=== PATIENT | female | born 1990 | race Two or more races ===

== ENCOUNTER 2019-12-18 18:25 | Observation (INO) | payer MEDICAID ==
[~2019-12-18 18:25] MED LIST: FERR27TA2 PO; PREN-96 PO
== END 2019-12-18 21:02 | disposition home or self-care (01) ==
LOC: LDRP 18:25
PROVIDERS: ADMIT Obstetrics & Gynecology; ATTEND Obstetrics & Gynecology
DX: O36.5930 Maternal care for other known or suspected poor fetal growth, third trimester, not applicable or unspecified (principal); Z3A.36 36 weeks gestation of pregnancy
CPT/HCPCS: 59025; 76818; 81002; G0378

== ENCOUNTER 2019-12-25 15:13 | Observation (INO) | payer MEDICAID | END 2019-12-25 17:20 | disposition home or self-care (01) | LOC: LDRP 15:13 | PROVIDERS: ADMIT Specialist; ATTEND Specialist | DX: O36.5930 Maternal care for other known or suspected poor fetal growth, third trimester, not applicable or unspecified (principal); Z3A.37 37 weeks gestation of pregnancy | CPT/HCPCS: 59025; 76818; G0378; 81002 ==

== ENCOUNTER 2019-12-29 16:13 | Observation (INO) | payer MEDICAID | END 2019-12-29 17:25 | disposition home or self-care (01) | LOC: LDRP 16:13 | PROVIDERS: ADMIT Obstetrics & Gynecology; ATTEND Obstetrics & Gynecology | DX: O36.5930 Maternal care for other known or suspected poor fetal growth, third trimester, not applicable or unspecified (principal); Z3A.38 38 weeks gestation of pregnancy | CPT/HCPCS: 59025; 76818; 81002; G0378 ==

== ENCOUNTER 2020-01-06 12:00 | Observation (INO) | payer MEDICAID ==
[~2020-01-06 12:00] MED LIST changes: -FERR27TA2 PO
== END 2020-01-06 14:00 | disposition home or self-care (01) ==
LOC: LDRP 12:00
PROVIDERS: ADMIT Obstetrics & Gynecology; ATTEND Obstetrics & Gynecology
DX: O36.5930 Maternal care for other known or suspected poor fetal growth, third trimester, not applicable or unspecified (principal); Z20.828 Contact with and (suspected) exposure to other viral communicable diseases; Z3A.39 39 weeks gestation of pregnancy
CPT/HCPCS: 59025; 76818; 81002; G0378; U0003

== ENCOUNTER 2020-01-08 22:40 | Inpatient (IN) | payer MEDICAID ==
[~2020-01-08] VITALS: Ht 30.5 cm; Wt 0.5 kg
[2020-01-08] MEDS ORDERED: WITCH HAZEL-GLYCERIN PAD TOP PRN (23:00)
[2020-01-08] MEDS ORDERED: LIDOCAINE 2%HCL (LOCAL ANESTH.) INJ 20ML MDV IJ ONE (23:00)
[2020-01-08] MEDS ORDERED: LACTATED RINGER'S 1,000 ML IV SCH (23:00)
[2020-01-08] MEDS ORDERED: DERMOPLAST 60ML BOTTLE TOP PRN (23:00)
[2020-01-08] MEDS ORDERED: PHISODERM TOP SOLN 240ML BTL TOP PRN (23:00)
[2020-01-08 23:49] LABS: Basophils # (auto) 0 10 ^3/uL (0-0.2); Basophils % (auto) 0.3 % (0.0-2.0); Eosinophils # (auto) 0.1 10 ^3/uL (0-0.8); Eosinophils % (auto) 0.6 % (0.0-7.0); Hematocrit 34.5 % (36.0-46.0); Hemoglobin 11.5 g/dL (12.2-16.2); Lymphocytes # (auto) 1.4 10 ^3/uL (0.4-5.4); Lymphocytes % (auto) 17.5 % (10.0-50.0); Mean Corpuscular Hemoglobin 30.6 pg (28.0-32.0); Mean Corpuscular Hgb Conc. 33.5 g/dL (32.0-36.0); Mean Corpuscular Volume 91.4 fL (80.0-100.0); Monocytes # (auto) 0.8 10 ^3/uL (0-1.3); Monocytes % (auto) 9.4 % (0.0-12.0); Neutrophils # (auto) 5.9 10 ^3/uL (1.6-8.6); Neutrophils % (auto) 72.2 % (37.0-80.0); Platelet Count (auto) 184 10^3/uL (140-450); Red Blood Cells 3.78 10^6/uL (4.0-5.20); Red Cell Distribution Width 15.8 % (11.8-14.3); White Blood Cell 8.1 10^3/uL (4.4-10.8)
[2020-01-08 23:52] LABS: Urine Bacteria FEW /hpf (None Seen); Urine Blood 2+ /uL (Negative); Urine Mucus FEW (None Seen); Urine Specific Gravity 1.013 (1.001-1.035); Urine WBC 3 /hpf (0 - 5)
[2020-01-09] MEDS ORDERED: miSOPROStol 50 MCG per PRE-CUT 1/2 TAB PO PRN
[2020-01-09 00:07] LABS: Albumin 2.6 g/dL (3.4-5.0); Calcium 8.8 mg/dL (8.5-10.1); Potassium 3.5 mmol/L (3.5-5.1)
[2020-01-09 00:09] LABS: BUN/Creatinine Ratio 16.1
[2020-01-09 00:11] LABS: Bilirubin, Total 0.3 mg/dL (0.2-1.0); Total Protein 6.6 g/dL (6.4-8.2)
[2020-01-09 00:18] LABS: INR 1.04 (0.9-1.15); Partial Thromboplastin Time 26.4 sec (23.0-31.2)
[2020-01-09] MEDS ORDERED: NALOXONE HCL 0.4 MG/ML VIAL IV ONE (02:15)
[2020-01-09] MEDS ORDERED: ROPIVACAINE HCL 200 ML EPI SCH (02:15)
[2020-01-09] MEDS ORDERED: LIDOCAINE HCL 2 %PF INJ 10ML AMP IJ ONE (02:15)
[2020-01-09] MEDS ORDERED: fentaNYL CITRATE 100 MCG/2 ML VL IV ONE (02:15)
[2020-01-09] MEDS ORDERED: LACTATED RINGER'S 1,000 ML IV ONE (02:15)
[2020-01-09] MEDS ORDERED: ePHEDrine SULFATE 50 MG/ML AMP IV ONE (02:15)
[2020-01-09] MEDS ORDERED: ONDANSETRON HCL 4 MG/2 ML VIAL IV ONE (02:30)
[2020-01-09] MEDS ORDERED: ONDANSETRON HCL 4 MG/2 ML VIAL ONE (02:34)
[2020-01-09] MEDS ORDERED: BUTORPHANOL TARTRATE 2 MG/1 ML VIAL IV ONE (03:15)
[2020-01-09] MEDS ORDERED: PROMETHAZINE HCL 25 MG/ML 1ML IV ONE (03:15)
[2020-01-09] MEDS ORDERED: PROMETHAZINE HCL 25 MG/ML 1ML ONE (03:17)
[2020-01-09] MEDS ORDERED: BUTORPHANOL TARTRATE 2 MG/1 ML VIAL ONE (03:17)
[2020-01-09] MEDS ORDERED: LACT. RINGERS/OXYTOCIN 20UNITS 1,000 ML IV ONE ×2 (03:18→03:30)
[2020-01-09] MEDS ORDERED: METHYLERGONOVINE MALEATE 0.2 MG/ML AMP IM ONE (03:50)
[2020-01-09] MEDS ORDERED: miSOPROStol 100 mcg TAB ONE ×3 (03:52→05:59)
[2020-01-09] MEDS ORDERED: DIPHENOXYLATE W/ATROPINE 2.5 MG TAB PO ONE (05:15)
[2020-01-09] MEDS ORDERED: CARBOPROST TROMETHAMINE 250 MCG/1ML VIAL IM ONE (05:15)
[2020-01-09 07:00] VITALS: BP 135/72
--- NOTE | 2020-01-09 08:00 | NUR ---
Ambulation: Patient OOB with standby assistance by RN. Patient ambulated to bathroom with steady gait. Patient able to void 550 without difficulty. [facility]are teaching provided with returned demonstration by patient. Clean gown provided and bed linen changed. Patient ambulated back to bed with steady gait and no distress noted.
[2020-01-09 11:00] VITALS: BP 124/57
[2020-01-09] MEDS ORDERED: ACETAMINOPHEN 325 MG TAB PO PRN (17:00)
[2020-01-09] MEDS: IBUPROFEN 600 MG TAB PO PRN (18:13)
[2020-01-09 19:22] VITALS: BP 107/58
--- NOTE | 2020-01-09 22:00 | NUR ---
INFANT FEEDINGS PT CONFESSING TO BABY NOT LATCHING ON ADEQUATELY AND HAVING IS DIFFICULTY WAKING UP BABY. PT WAS EDUCATED ON WAYS TO WAKE UP BABY. PT VERBALIZED UNDERSTANDING AND PERFORMED RETURN DEMONSTRATION. PT WAS EDUCATED ON LATCHING ON BABY TO BREAST. PT STATES "SHE LATCHED ON EARLIER, SHE ONLY FEEDS ON THE BREAST FOR 2MIN AND FALLS ASLEEP RIGHT AWAY." SEVERAL ATTEMPTS MADE TO LATCH ON BABY TO THE BREAST AND BABY CONTINUES TO FALL ASLEEP. NIPPLE SHIELD PROVIDED AND PT WAS EDUCATED ON NIPPLE SHIELD APPLICATION. PT VERBALIZED UNDERSTANDING. PT STATED SHE WILL ATTEMPT TO FEED BABY.
--- NOTE | 2020-01-09 22:45 | NUR ---
REASSESSED FEEDING OUTCOME. PT STATES " I HAVE TRIED AND SHE JUST WON'T WAKE UP". PT PROVIDED RETURN DEMONSTRATION AND NO LATCH WAS ACHIEVED. PT GIVEN SIMILAC BOTTLE. PT WAS EDUCATED ON FORMULA FEEDING. PT VERBALIZED UNDERSTANDING.
--- NOTE | 2020-01-09 23:10 | NUR ---
PT FED BABY 9ML FROM SIMILAC
[2020-01-09 23:15] VITALS: BP 112/70
[2020-01-10 02:40] VITALS: BP 106/59
[2020-01-10 05:11] LABS: RPR Non Reactive (Non Reactive)
[2020-01-10 06:50] VITALS: BP 106/52
--- NOTE | 2020-01-10 08:30 | NUR ---
IV removal IV DC'd with clean sterile technique, catheter fully intact. Pressure dressing applied to site. Patient tolerated well. NOTE:
[2020-01-10] MEDS: IBUPROFEN 600 MG TAB PO PRN (10:14)
[2020-01-10] MEDS ORDERED: MEASLES, MUMPS & RUBELLA VAC(MMRII) 0.5ML SC ONE (10:45)
[2020-01-10 11:00] VITALS: BP 112/59
--- NOTE | 2020-01-10 11:35 | NUR ---
Discharge: Discharge instructions given as ordered. Pt encouraged to follow up with [facility] [employer]PERATIONS OFFICER as instructed. All questions and concerns addressed. Patient verbalized understanding. Medication reconciliation completed and copy given to patient. All required/requested vaccines given and copies of vaccinations given to patient. Patient encouraged to prepare to depart unit.
== END 2020-01-10 12:22 | disposition home or self-care (01) | DRG 560 ==
LOC: LDRP 22:40
PROVIDERS: ADMIT Obstetrics & Gynecology; ATTEND Obstetrics & Gynecology
PROC: 10E0XZZ Delivery of Products of Conception, External Approach (ICD-10-PCS; principal; 2020-01-09)
PROC: 3E0P7VZ Introduction of Hormone into Female Reproductive, Via Natural or Artificial Opening (ICD-10-PCS; 2020-01-09)
DX: O36.5990 Maternal care for other known or suspected poor fetal growth, unspecified trimester, not applicable or unspecified (principal); O62.3 Precipitate labor; Z37.0 Single live birth; Z3A.39 39 weeks gestation of pregnancy; O70.0 First degree perineal laceration during delivery
CPT/HCPCS: 36415; 59025; 59409; 80053; 81001; 85025; 85610; 85730; 86592; 86850; 86900; 86901; 96360; 96361; 96365; 96366; 96372; 96374; 96375; G0378; J2405; J2590

== ENCOUNTER 2022-01-24 11:46 | Emergency (ER) | payer MEDICAID ==
[~2022-01-24] VITALS: Ht 162.6 cm; Wt 71.8 kg
[2022-01-24 13:59] VITALS: BP 118/66
[2022-01-24] MEDS ORDERED: ACETAMINOPHEN 325 MG TAB PO ONE (17:30)
== END 2022-01-24 18:46 | disposition home or self-care (01) ==
LOC: ER 11:46
DX: J06.9 Acute upper respiratory infection, unspecified (principal)
CPT/HCPCS: 71046

== ENCOUNTER 2022-07-09 10:14 | Emergency (ER) | payer MEDICAID ==
[~2022-07-09] VITALS: Ht 162.6 cm; Wt 65.4 kg
[2022-07-09 10:42] VITALS: BP 149/83
[2022-07-09] MEDS ORDERED: IBUP600T27 PO (11:01)
[2022-07-09] MEDS ORDERED: AUG875T PO (11:01)
[2022-07-09] MEDS ORDERED: PRED20TA2 PO (11:01)
== END 2022-07-09 11:03 | disposition home or self-care (01) ==
LOC: ER 10:14
DX: H66.92 Otitis media, unspecified, left ear (principal); H65.92 Unspecified nonsuppurative otitis media, left ear; Z79.899 Other long term (current) drug therapy

== ENCOUNTER 2022-10-14 01:41 | Emergency (ER) | payer MEDICAID ==
[~2022-10-14] VITALS: Ht 162.6 cm; Wt 66.5 kg
[~2022-10-14 01:41] MED LIST changes: +AUG875T PO; +IBUP-1454 PO; +PRED20TA2 PO
[2022-10-14 03:28] VITALS: BP 115/76; PULSE 76; RESP 18; TEMP 98.9; O2SAT 99
[2022-10-14] MEDS ORDERED: cefTRIAXone SOD 1,000 MG VL IM ONE (03:30)
[2022-10-14] MEDS ORDERED: HYDROcodone-ACET 5/325MG TAB PO ONE (03:30)
[2022-10-14] MEDS ORDERED: AMOX500C2 PO (03:36)
[2022-10-14] MEDS ORDERED: ACETAMINOPHEN 325 MG TAB PO ONE (03:45)
== END 2022-10-14 04:38 | disposition home or self-care (01) ==
LOC: ER 01:41
DX: O99.611 Diseases of the digestive system complicating pregnancy, first trimester (principal); K04.7 Periapical abscess without sinus; Z79.1 Long term (current) use of non-steroidal anti-inflammatories (NSAID); Z79.2 Long term (current) use of antibiotics; Z79.899 Other long term (current) drug therapy; Z3A.01 Less than 8 weeks gestation of pregnancy

== ENCOUNTER → 2022-11-14 | Outpatient (CLI) | payer MEDICAID ==
[~2022-11-14] MED LIST changes: +AMOX500C2 PO
[2022-11-14 12:44] LABS: Basophils # (auto) 0 10 ^3/uL (0-0.2); Basophils % (auto) 0.2 % (0.0-2.0); Eosinophils # (auto) 0 10 ^3/uL (0-0.8); Eosinophils % (auto) 0.3 % (0.0-7.0); Hematocrit 35.8 % (36.0-46.0); Hemoglobin 11.8 g/dL (12.2-16.2); Lymphocytes # (auto) 1.2 10 ^3/uL (0.4-5.4); Lymphocytes % (auto) 11.3 % (10.0-50.0); Mean Corpuscular Hemoglobin 28.7 pg (28.0-32.0); Mean Corpuscular Hgb Conc. 32.9 g/dL (32.0-36.0); Mean Corpuscular Volume 87.2 fL (80.0-100.0); Monocytes # (auto) 0.7 10 ^3/uL (0-1.3); Monocytes % (auto) 6.3 % (0.0-12.0); Neutrophils # (auto) 8.9 10 ^3/uL (1.6-8.6); Neutrophils % (auto) 81.9 % (37.0-80.0); White Blood Cell 10.8 10^3/uL (4.4-10.8)
[2022-11-14 13:03] LABS: Amphetamine Screen, Urine Neg (NEGATIVE); Barbiturate Scree,Urine Neg (NEGATIVE); Benzodiazephine Screen, Urine Neg (NEGATIVE); Cocaine Screen, Urine Neg (NEGATIVE); Opiate Scree,Urine Neg (NEGATIVE); Phencyclidine Screen, Urine Neg (NEGATIVE)
[2022-11-14 13:05] LABS: Cannabinoid Screen, Urine Neg (NEGATIVE)
[2022-11-14 13:08] LABS: Urine Bacteria NONE SEEN /hpf (None Seen); Urine Blood Negative /uL (Negative); Urine Clarity Clear (Clear); Urine Mucus FEW (None Seen); Urine Protein, UAD Negative (Negative); Urine Urobilinogen Normal (Negative); Urine WBC <1 /hpf (0 - 5); Urine pH 5.5 (5.0-8.0)
[2022-11-14 13:10] LABS: Urine Color Straw (Yellow)
[2022-11-15 05:07] LABS: RPR Non Reactive (Non Reactive)
[2022-11-16 02:06] LABS: Treponema Pallidum Ab LC Non Reactive (Non Reactive)
== END | disposition home or self-care (01) ==
LOC: LAB 11:54
PROVIDERS: ATTEND Obstetrics & Gynecology
DX: Z34.80 Encounter for supervision of other normal pregnancy, unspecified trimester (principal); N76.0 Acute vaginitis
CPT/HCPCS: 36415; 80307; 81001; 83036; 84112; 84144; 84702; 85025; 86592; 86703; 86762; 86850; 86900; 86901; 87086; 87340

== ENCOUNTER → 2023-05-18 | Outpatient (CLI) | payer MEDICAID ==
[2023-05-18 12:34] LABS: Basophils # (auto) 0 10 ^3/uL (0-0.2); Basophils % (auto) 0.3 % (0.0-2.0); Eosinophils # (auto) 0 10 ^3/uL (0-0.8); Eosinophils % (auto) 0.4 % (0.0-7.0); Hemoglobin 11.3 g/dL (12.2-16.2); Lymphocytes # (auto) 1.2 10 ^3/uL (0.4-5.4); Lymphocytes % (auto) 12.6 % (10.0-50.0); Mean Corpuscular Hemoglobin 27.8 pg (28.0-32.0); Mean Corpuscular Hgb Conc. 32.2 g/dL (32.0-36.0); Mean Corpuscular Volume 86.6 fL (80.0-100.0); Monocytes # (auto) 0.8 10 ^3/uL (0-1.3); Monocytes % (auto) 8.2 % (0.0-12.0); Neutrophils # (auto) 7.2 10 ^3/uL (1.6-8.6); Neutrophils % (auto) 78.5 % (37.0-80.0); Red Blood Cells 4.05 10^6/uL (4.0-5.20); Red Cell Distribution Width 15.8 % (11.8-14.3); White Blood Cell 9.2 10^3/uL (4.4-10.8)
[2023-05-19 08:06] LABS: RPR Non Reactive (Non Reactive)
[2023-05-21 20:06] LABS: Chlamydia Trachomatis, NAA Negative (Negative); Neisseria gonorrhoeae, NAA Negative (Negative)
== END | disposition home or self-care (01) ==
LOC: LAB 12:20
PROVIDERS: ATTEND Obstetrics & Gynecology
DX: Z34.80 Encounter for supervision of other normal pregnancy, unspecified trimester (principal); Z72.51 High risk heterosexual behavior
CPT/HCPCS: 36415; 85025; 86592

== ENCOUNTER 2023-06-04 09:47 | Inpatient (IN) | payer MEDICAID ==
[~2023-06-04] VITALS: Ht 160 cm; Wt 79.4 kg
[2023-06-04] MEDS ORDERED: BUTORPHANOL TARTRATE 2 MG/1 ML VIAL IV PRN ×2 (10:15)
[2023-06-04] MEDS ORDERED: LIDOCAINE 2%HCL (LOCAL ANESTH.) INJ 20ML MDV IJ PRN (10:15)
[2023-06-04 10:34] LABS: Basophils # (auto) 0 10 ^3/uL (0-0.2); Basophils % (auto) 0.2 % (0.0-2.0); Eosinophils # (auto) 0 10 ^3/uL (0-0.8); Eosinophils % (auto) 0.3 % (0.0-7.0); Hematocrit 33.5 % (36.0-46.0); Hemoglobin 10.9 g/dL (12.2-16.2); Lymphocytes # (auto) 1.1 10 ^3/uL (0.4-5.4); Lymphocytes % (auto) 10.6 % (10.0-50.0); Mean Corpuscular Hemoglobin 27.6 pg (28.0-32.0); Mean Corpuscular Hgb Conc. 32.6 g/dL (32.0-36.0); Mean Corpuscular Volume 84.8 fL (80.0-100.0); Monocytes # (auto) 0.8 10 ^3/uL (0-1.3); Monocytes % (auto) 7.9 % (0.0-12.0); Neutrophils # (auto) 8.6 10 ^3/uL (1.6-8.6); Red Blood Cells 3.95 10^6/uL (4.0-5.20); Red Cell Distribution Width 16.3 % (11.8-14.3); White Blood Cell 10.6 10^3/uL (4.4-10.8)
[2023-06-04 10:40] LABS: Urine Bacteria FEW /hpf (None Seen); Urine Blood 3+ /uL (Negative); Urine Clarity HAZY (Clear); Urine Color Yellow (Yellow); Urine Mucus FEW (None Seen); Urine Protein, UAD 1+ (Negative); Urine Specific Gravity 1.022 (1.001-1.035); Urine Urobilinogen Normal (Negative); Urine WBC 5 /hpf (0 - 5); Urine pH 6.5 (5.0-8.0)
[2023-06-04] MEDS: LACTATED RINGER'S 1,000 ML IV SCH (10:54)
[2023-06-04 10:56] LABS: Amphetamine Screen, Urine Neg (NEGATIVE); Barbiturate Scree,Urine Neg (NEGATIVE); Benzodiazephine Screen, Urine Neg (NEGATIVE); Cannabinoid Screen, Urine Neg (NEGATIVE); Cocaine Screen, Urine Neg (NEGATIVE); Opiate Scree,Urine Neg (NEGATIVE); Phencyclidine Screen, Urine Neg (NEGATIVE)
[2023-06-04 10:56] LABS: Albumin 3.9 g/dL (3.2-4.8); Alkaline Phosphatase 215 U/L (46-116); Anion Gap 8 (5-15); Aspartate Aminotransferase 14 U/L (13-40); BUN/Creatinine Ratio 12.8 (10.0-20.0); Blood Urea Nitrogen 6 mg/dL (9-23); Calcium 9.1 mg/dL (8.5-10.1); Carbon Dioxide 24 mmol/L (20-30); Chloride 106 mmol/L (98-107); Glucose 80 mg/dL (74-106); INR 1.06 (0.9-1.15); Partial Thromboplastin Time 28.2 SEC (24.5-34.5); Prothrombin Time 11.1 sec (9.3-11.8); Sodium 138 mmol/L (136-145)
[2023-06-04 10:57] LABS: Bilirubin, Total 0.5 mg/dL (0.2-1.0); Total Protein 6.3 g/dL (5.7-8.2)
[2023-06-04 10:58] LABS: Alanine Aminotransferase < 9 U/L (7-40)
[2023-06-04] MEDS ORDERED: NALOXONE HCL 0.4 MG/ML VIAL IV ONE (11:30)
[2023-06-04] MEDS ORDERED: ePHEDrine SULFATE 50 MG/ML AMP IV ONE (11:30)
[2023-06-04] MEDS: WITCH HAZEL-GLYCERIN PAD TOP PRN (15:31)
[2023-06-04] MEDS: PHISODERM TOP SOLN 240ML BTL TOP PRN (15:31)
[2023-06-04] MEDS: DERMOPLAST 60ML BOTTLE TOP PRN (15:31)
[2023-06-04] MEDS: LACT. RINGERS/OXYTOCIN 20UNITS 500 ML IV ONE ×2 (15:57→16:28)
[2023-06-04] MEDS ORDERED: ACETAMINOPHEN 325 MG TAB PO PRN (16:15)
[2023-06-04] MEDS ORDERED: ONDANSETRON ODT 4 MG TAB PO PRN (16:15)
[2023-06-04] MEDS: ROPIVACAINE HCL 200 ML ONE (18:23)
[2023-06-04] MEDS: IBUPROFEN 600 MG TAB PO PRN (18:40)
[2023-06-04 19:00] VITALS: BP 123/75; PULSE 111; RESP 18; TEMP 98.3; O2SAT 98
[2023-06-04] MEDS: DOCUSATE SOD 100 MG CAP PO SCH (22:27)
[2023-06-04 23:00] VITALS: BP 110/65; PULSE 86; RESP 16; TEMP 98.6; O2SAT 97
[2023-06-05] MEDS ORDERED: TETANUS-DIPTH-ACEL PERTUSSIS 0.5ML SYR Tdap IM ONE (00:45)
[2023-06-05 03:09] VITALS: BP 117/78; PULSE 93; RESP 18; TEMP 98.3; O2SAT 97
[2023-06-05 06:06] LABS: RPR Non Reactive (Non Reactive)
[2023-06-05 07:00] VITALS: RESP 16; O2SAT 98
[2023-06-05 11:00] VITALS: BP 110/71; PULSE 93; RESP 16; TEMP 98.3; O2SAT 97
[2023-06-05 15:00] VITALS: BP 117/68; PULSE 99; RESP 16; TEMP 98.1; O2SAT 97
[2023-06-06 19:06] LABS: Treponema pallidum Ab (FTA-Ab) Non Reactive (Non Reactive)
== END 2023-06-05 17:28 | disposition home or self-care (01) | DRG 560 ==
LOC: LDRP 09:47 → OBSVTOIN 10:06 → LDRP 20:25
PROVIDERS: ADMIT Obstetrics & Gynecology; ATTEND Obstetrics & Gynecology
PROC: 10E0XZZ Delivery of Products of Conception, External Approach (ICD-10-PCS; principal; 2023-06-04)
PROC: 3E0R3BZ Introduction of Anesthetic Agent into Spinal Canal, Percutaneous Approach (ICD-10-PCS; 2023-06-04)
PROC: 00HU33Z Insertion of Infusion Device into Spinal Canal, Percutaneous Approach (ICD-10-PCS; 2023-06-04)
DX: O80 Encounter for full-term uncomplicated delivery (principal); Z37.0 Single live birth; Z3A.39 39 weeks gestation of pregnancy
CPT/HCPCS: 36415; 59025; 59409; 62282; 80053; 80307; 81001; 85025; 85610; 85730; 86592; 86850; 86900; 86901; 94760; 94762; 96360; 96361; 96366; G0378; J2590